=== PATIENT | female | born 1990 | race African-American/Black ===

== ENCOUNTER 2020-10-01 10:14 | Emergency (ER) | payer OTHER ==
[~2020-10-01] VITALS: Ht 167.6 cm; Wt 154.0 kg
[2020-10-01] MEDS ORDERED: SODIUM CHLORIDE 0.9% 1,000 ML IV ONE (10:45)
[2020-10-01] MEDS ORDERED: CEFTRIAXONE 1 G PREMIX 50 ML IV ONE (10:45)
[2020-10-01] MEDS ORDERED: AZITHROMYCIN 500 MG in DEXT 5% WATER 250 ML IV ONE (10:45)
[2020-10-01] MEDS ORDERED: IPRATROPIUM BROMIDE (0.02%) 0.5MG/2.5ML NEB HHN STA (10:53)
[2020-10-01] MEDS ORDERED: ALBUTEROL (0.083%) 2.5MG/3ML NEB HHN STA (10:53)
[2020-10-01] MEDS ORDERED: PREDNISONE 20MG TABLET PO STA (10:53)
[2020-10-01 11:19] LABS: BASOPHILS % 0.2 % (0.0-2.0); EOSINOPHILS % 2.4 % (0.0-5.0); HEMATOCRIT. 24.8 % (36.0-48.0); HEMOGLOBIN. 7.6 g/dL (12.0-16.0); LYMPHOCYTES % 29.2 % (20.0-50.0); MEAN CORPUSCULAR HEMOGLOBIN 20.9 pg (28.0-32.0); MEAN CORPUSCULAR VOLUME 68.7 fL (81.0-99.0); MEAN PLATELET VOLUME 7.8 fl (7.4-10.4); MONOCYTES % 8.3 % (2.0-8.0); NEUTROPHILS % 59.9 % (40.0-76.0); PLATELET 330 x1000/uL (130-400); RED BLOOD CELL COUNT 3.62 mill/uL (4.2-5.4); RED CELL DISTRIBUTION WIDTH 19.6 % (11.6-14.6)
[2020-10-01 11:32] LABS: CHLORIDE 110 mEq/L (98-107)
[2020-10-01 12:08] LABS: PLATELET ESTIMATE NORMAL
[2020-10-01 15:51] VITALS: BP 139/86
== END 2020-10-01 16:06 | disposition home or self-care (01) ==
LOC: ER 10:14 → CANBEDREQ 19:19
DX: J45.909 Unspecified asthma, uncomplicated (principal); Z90.49 Acquired absence of other specified parts of digestive tract
CPT/HCPCS: 36415; 71045; 80053; 83605; 84484; 85025; 87040; 93005; 96365; 96366; 96368; 99285; J0456; J0696; J7030; J7060; J7512

== ENCOUNTER 2022-08-26 12:04 | Emergency (ER) | payer OTHER ==
[~2022-08-26] VITALS: Ht 167.6 cm; Wt 143.0 kg
[2022-08-26] MEDS ORDERED: IBUPROFEN 600MG TABLET PO ONE (14:15)
[2022-08-26] MEDS ORDERED: SODIUM CHLORIDE 0.9% 1,000 ML IV ONE (14:15)
[2022-08-26 15:44] VITALS: BP 203/78
[2022-08-26 15:51] LABS: BASOPHILS % 1.5 % (0.0-2.0); EOSINOPHILS % 1.5 % (0.0-5.0); HEMATOCRIT. 42.5 % (36.0-48.0); HEMOGLOBIN. 13.6 g/dL (12.0-16.0); LYMPHOCYTES % 27.4 % (20.0-50.0); MEAN CORPUSCULAR HEMOGLOBIN 25.5 pg (28.0-32.0); MEAN CORPUSCULAR VOLUME 79.3 fL (81.0-99.0); MEAN PLATELET VOLUME 8.6 fl (7.4-10.4); MONOCYTES % 4.7 % (2.0-8.0); NEUTROPHILS % 64.9 % (40.0-76.0); PLATELET 418 x1000/uL (130-400); RED BLOOD CELL COUNT 5.36 mill/uL (4.2-5.4); RED CELL DISTRIBUTION WIDTH 16.4 % (11.6-14.6)
[2022-08-26 15:53] LABS: CLARITY URINE CLOUDY (CLEAR); COLOR URINE ORANGE (YELLOW); KETONES URINE TRACE (NEGATIVE); LEUKOCYTE ESTERASE URINE 1+ (NEGATIVE); NITRITE URINE NEGATIVE (NEGATIVE); OCCULT BLOOD URINE 3+ (NEGATIVE); PH URINE 6.5 (4.5-8.0); PROTEIN URINE 1+ (NEGATIVE); SPECIFIC GRAVITY URINE 1.024 (1.005-1.030)
[2022-08-26 15:58] LABS: CHLORIDE 106 mEq/L (98-107)
[2022-08-26 16:16] LABS: HCG SCREEN NEGATIVE
== END 2022-08-26 17:47 | disposition home or self-care (01) ==
LOC: ER 12:04
DX: D25.9 Leiomyoma of uterus, unspecified (principal); R00.0 Tachycardia, unspecified
CPT/HCPCS: 36415; 76830; 76856; 80053; 81003; 82962; 84703; 85025; 86850; 86900; 86901; 93005; 99285; J7030

== ENCOUNTER 2024-05-02 18:33 | Emergency (ER) | payer BC ==
[~2024-05-02] VITALS: Ht 165.1 cm; Wt 145.0 kg
[2024-05-02 18:51] VITALS: O2SAT 100
[2024-05-02 19:44] LABS: BASOPHILS % 1.3 % (0.0-2.0); DIFFERENTIAL COMMENT 0; HEMATOCRIT. 23.7 % (36.0-48.0); HEMOGLOBIN. 7.3 g/dL (12.0-16.0); MEAN CORPUSCULAR HEMOGLOBIN 22.7 pg (28.0-32.0); MEAN CORPUSCULAR HGB CONC 30.9 g/dL (31.0-37.0); MEAN CORPUSCULAR VOLUME 73.5 fL (81.0-99.0); MEAN PLATELET VOLUME 8.3 fl (7.4-10.4); MONOCYTES % 5.2 % (2.0-8.0); NEUTROPHILS % 59.5 % (40.0-76.0); PLATELET 470 x1000/uL (130-400); RED BLOOD CELL COUNT 3.22 mill/uL (4.2-5.4); RED CELL DISTRIBUTION WIDTH 19.6 % (11.6-14.6); WHITE BLOOD COUNT 8.9 x1000/uL (4.5-11.0)
[2024-05-02 19:46] VITALS: TEMP 37.16964
[2024-05-02 19:50] LABS: CHLORIDE 106 mEq/L (98-107); SODIUM 139 mEq/L (136-145)
[2024-05-02 19:51] LABS: CALCIUM 8.5 mg/dL (8.7-10.4); CARBON DIOXIDE 21 mEq/L (21-32)
[2024-05-02 19:56] LABS: GLUCOSE 151 mg/dL (70-105); UREA NITROGEN BLOOD 12 mg/dL (9-23)
[2024-05-02] MEDS: MIDAZOLAM HCL 2 MG/2 ML VIAL IV ONE (19:58)
[2024-05-02] MEDS: SODIUM CHLORIDE 0.9% 1,000 ML IV ONE (19:59)
[2024-05-02 20:05] LABS: TROPONIN I HIGH SENSITIVITY < 4 ng/L (3.0-34)
[2024-05-02 21:21] VITALS: BP 143/77; PULSE 99; RESP 15; O2SAT 100
== END 2024-05-02 21:21 | disposition home or self-care (01) ==
LOC: ER 18:33
DX: R00.2 Palpitations (principal); F41.9 Anxiety disorder, unspecified; J45.909 Unspecified asthma, uncomplicated; Z90.49 Acquired absence of other specified parts of digestive tract
CPT/HCPCS: 99285; 96374; 71045; 96361; 80048; 85025; 85379; 84484; 36415; 93005; J2250; J7030